=== PATIENT | female | born 1960 | race Caucasian/White ===

== ENCOUNTER 2020-09-18 14:51 | Outpatient (CLI) | payer OTHER, SELFPAY ==
--- NOTE | ~2020-09-18 | MM_ITS ---
EXAMINATION: MM screening [facility] BI w zack HISTORY: Screening mammogram TECHNIQUE: Craniocaudal and mediolateral oblique 3-D tomosynthesis images were obtained and synthetic 2-D images were generated. CAD analysis was submitted and interpreted. COMPARISON: 08/18/2019, 08/11/2018, 11/06/2016 BREAST PARENCHYMAL COMPOSITION: The breasts are almost entirely fatty. FINDINGS: There is no evidence of suspicious mass, calcification, or architectural distortion to sugg est malignancy in either breast. There has been no suspicious interval change. IMPRESSION: 1. No mammographic evidence of malignancy. 2. Recommend routine screening mammography in one year. BI-RADS Category 1: Negative Reviewed, dictated and finalized at location A. ARD/ST[employer]ARDESS [employer]INE
== END 2020-09-18 14:52 | disposition home or self-care (01) ==
LOC: ANHIMG 14:55
PROVIDERS: PCP Family Medicine; Visit Provider Family Medicine
DX: Z12.31 Encounter for screening mammogram for malignant neoplasm of breast (principal)
CPT/HCPCS: 77063; 77067

== ENCOUNTER 2022-01-25 16:51 | Outpatient (CLI) | payer OTHER, SELFPAY ==
--- NOTE | ~2022-01-25 | XR_ITS ---
EXAMINATION: XR ankle RT min 3V DATE: 01/25/2022 17:19 INDICATION: Right ankle pain and swelling. TECHNIQUE: 4 views of right ankle were obtained. COMPARISON: None. FINDINGS: Bone alignment is normal. No fracture. There is severe midfoot osteoarthritis. There is an enthesophyte at plantar aspect of calcaneal tuberosity. Ankle soft tissue swelling is noted. IMPRESSION: 1. Severe midfoot osteoarthritis. Reviewed, dictated and finalized at location A.
--- NOTE | ~2022-01-25 | XR_ITS ---
EXAMINATION: XR foot RT min 3V DATE: 01/25/2022 17:17 INDICATION: Right foot pain. TECHNIQUE: 5 views of right foot were obtained. COMPARISON: None. FINDINGS: Bone alignment is normal. No fracture. There is severe osteoarthritis of the naviculocuneif orm joints. There is mild osteoarthritis of many of the midfoot joints and interphalangeal joints. Th ere is moderate osteoarthritis of first metatarsophalangeal joint. There is mild osteoarthritis of fo urth and fifth metatarsophalangeal joints. There is an enthesophyte at plantar aspect of calcaneal tu berosity. IMPRESSION: 1. Polyarticular osteoarthritis. Reviewed, dictated and finalized at location A.
== END 2022-01-25 16:52 | disposition home or self-care (01) ==
LOC: ANHIMG 16:57
PROVIDERS: PCP Family Medicine; Visit Provider Family Medicine
DX: M79.89 Other specified soft tissue disorders (principal); M19.071 Primary osteoarthritis, right ankle and foot
CPT/HCPCS: 73610; 73630

== ENCOUNTER → 2022-04-11 13:32 | Outpatient (CLI) | payer OTHER, SELFPAY ==
--- NOTE | ~2022-04-11 | MR_ITS ---
EXAMINATION: MR foot RT wo con DATE: 04/11/2022 14:09 INDICATION: Decreased right ankle pain TECHNIQUE: Magnetic resonance imaging (MRI) of the right ankle was performed without intravenous cont rast. Sequences included sagittal, coronal, and axial proton-density weighted fast spin echo without and with fat saturation. COMPARISON: None. FINDINGS: Medial ankle ligaments: The superficial deltoid ligaments as well as the spring ligament are normal. Partial loss of the norm ally more sharply defined striated pattern of the deep deltoid ligament without surrounding edema con sistent with scarring related to chronic sprain. Lateral ankle ligaments: The anterior and posterior inferior tibiofibular ligaments are normal. There is thickening and increa sed signal of the anterior talofibular and calcaneofibular ligaments without surrounding edema consis tent with scarring related to chronic sprains. The posterior talofibular ligaments are normal. Tendons: Achilles tendon is normal. The peroneus longus and brevis tendons are normal. The tibialis anterior a nd extensor hallucis longus and extensor digitorum longus tendons are normal. The tibialis posterior, flexor digitorum longus and flexor hallucis longus tendons are normal. Plantar fascia: Moderate-sized plantar calcaneal spur and thickening of the proximal plantar aponeurosis consistent w ith chronic enthesopathy. No surrounding soft tissue or marrow edema to suggest acute plantar fasciit is. Bones/other: Bone alignment is normal. No fracture. Polyarticular osteoarthritis in the mid and hindfoot, severe w ith prominent marrow edema and degenerative subarticular cystic changes at the articulations between the navicula and mid and lateral cuneiforms. Additional moderate osteoarthritis at the medial navicul ocuneiform articulation, the calcaneocuboid, second and fourth tarsal metatarsal joints and mild at t he remaining tarsal metatarsal joints. Small bone island at the anterior aspect of the tibial plafond and. No pathologic marrow replacing process. Sinus Tarsi and tarsal tunnel are unremarkable. Fluid: Physiologic amount fluid in the joint spaces. No tenosynovitis, bursitis or other abnormal fluid mahnaz ections. Nonspecific mild soft tissue edema in the subcutaneous tissues into the ankle and over the d orsum of the mid and hindfoot. IMPRESSION: 1. Polyarticular osteoarthritis in the mid and hindfoot, severe at the articulations between the martin cula and the middle and lateral cuneiforms. 2. Scarring consistent with sequela of chronic medial and lateral ankle sprains involving the deep de ltoid, anterior talofibular and calcaneofibular ligaments. 2. Plantar calcaneal chronic enthesopathy with moderate-sized spur. Reviewed, dictated and finalized at location A. IMPRESSION: 1. Polyarticular osteoarthritis in the mid and hindfoot, severe at the articula tions between the navicula and the middle and lateral cuneiforms. 2. Scarring consistent with sequela of chronic medial and lateral ankle sprains involving the deep deltoid, anterior talofibular and calcaneofibular ligaments . 2. Plantar calcaneal chronic enthesopathy with moderate-sized spur.
== END ==
PROVIDERS: PCP Family Medicine; Visit Provider Orthopaedic Surgery
DX: M19.071 Primary osteoarthritis, right ankle and foot (principal); M77.31 Calcaneal spur, right foot
CPT/HCPCS: 73718

== ENCOUNTER → 2023-03-07 11:54 | Outpatient (CLI) | payer OTHER, SELFPAY ==
--- NOTE | ~2023-03-07 | XR_ITS ---
Lumbosacral Spine: AP and lateral views Clinical History: Pain Findings: The normal lordotic curve is maintained. No fracture or subluxation evident. There is advan vicky degenerative disc narrowing at L3-L4 and L4-L5. There is moderate degenerative disc narrowing at L2-L3. There is mild facet arthropathy at L4-L5 and L5-S1. The sacroiliac joints are normally outline d. Impression: Mild to moderate degenerative change, as above. Reviewed, dictated and finalized at location M. Impression: Mild to moderate degenerative change, as above.
== END ==
PROVIDERS: PCP Family Medicine; Visit Provider Physician Assistant
DX: M47.816 Spondylosis without myelopathy or radiculopathy, lumbar region (principal)
CPT/HCPCS: 72100

== ENCOUNTER 2023-03-14 15:09 | Outpatient (CLI) | payer OTHER, SELFPAY ==
--- NOTE | ~2023-03-14 | CT_ITS ---
CT of the Abdomen and Pelvis: Indication: Pain Technique: 2.5 mm axial scans were obtained through the abdomen and pelvis following intravenous adm inistration of 100 cc of Omnipaque 350. Dose reduction technique was used on this scan by utilizing a utomated exposure control and iterative reconstruction technique. The dose-length product (DLP) was 6 29.13 mGy-cm. COMPARISON: 08/08/2010 Findings: Scans through the lung bases demonstrate moderate hiatal hernia. The liver, pancreas, adrenals and kidneys are within normal limits. Tiny gallbladder stone or gallbla dder wall calcification present. Splenic cyst measures 3.7 cm in diameter. No evidence of aortic aneu rysm. No lymphadenopathy. No bowel obstruction or bowel wall thickening. There is no evidence to suggest acute appendicitis. Images through the pelvis were performed. Urinary bladder unremarkable. No adnexal mass evident. No a scites. Impression: Probable tiny gallstone versus focal gallbladder wall calcification. Stable splenic cyst. Reviewed, dictated and finalized at [facility]. Impression: Probable tiny gallstone versus focal gallbladder wall calcification. Stable splenic cyst.
[2023-03-14 15:31] LABS: Estimated Glomerular Filt Rate 56
== END 2023-03-14 15:10 | disposition home or self-care (01) ==
PROVIDERS: PCP Family Medicine; Visit Provider Physician Assistant
DX: M54.50 Low back pain, unspecified (principal); D73.4 Cyst of spleen
CPT/HCPCS: 74177; Q9967

== ENCOUNTER 2023-03-25 13:05 | Outpatient (CLI) | payer OTHER, SELFPAY ==
--- NOTE | ~2023-03-25 | XR_ITS ---
XR thoracic spine 3V DATE: 03/25/2023 13:33 INDICATION: Generalized back pain TECHNIQUE: AP, lateral, swimmer COMPARISON: None FINDINGS: There is approximately 2.5 mm anterolisthesis at C4-5 and prominent degenerative disc disea se at C5-6. Normal alignment of the thoracic spine, with minimal levoscoliosis. The thoracic pedicles are intact. There is minimal thoracic spine degenerative spurring. No fracture or bone destruction or paraspinal soft tissue thickening. The thoracic pedicles are intact. IMPRESSION: Mild levoscoliosis of the thoracic spine Minimal degenerative spurring of the thoracic spine. 2.5 mm anterolisthesis at C4-5 Multilevel degenerative disc disease of cervical spine including severe degenerative disc disease at C5-6 Reviewed, dictated and finalized at location A. IMPRESSION: Mild levoscoliosis of the thoracic spine Minimal degenerative spurring of the thoracic spine. 2.5 mm anterolisthesis at C4-5 Multilevel degenerative disc disease of cervical spine including severe degener ative disc disease at C5-6
--- NOTE | ~2023-03-25 | XR_ITS ---
EXAMINATION: XR lumbar spine 2-3V DATE: 03/25/2023 13:33 INDICATION: Dorsalgia, unspecified TECHNIQUE: Anteroposterior and lateral views of the lumbar spine, and cone-down lateral view of the l umbosacral junction were obtained. COMPARISON: 03/07/2023 FINDINGS: Bone alignment is normal. There is no fracture. There is severe loss of intervertebral disc space height at L3-4 and L4-5. The vertebral body heights are maintained. There is moderate loss of intervertebral disc space height at L2-3. There is mild to moderate facet joint osteoarthritis of the lower lumbar spine. IMPRESSION: 1. [id number] lumbar spondylosis without acute findings or significant interval change. Reviewed, dictated and finalized at location L. IMPRESSION: 1. [id number] lumbar spondylosis without acute findings or significant in terval change.
== END 2023-03-25 13:06 | disposition home or self-care (01) ==
PROVIDERS: PCP Family Medicine; Visit Provider Physician Assistant
DX: M47.896 Other spondylosis, lumbar region (principal); M50.322 Other cervical disc degeneration at C5-C6 level
CPT/HCPCS: 72072; 72100

== ENCOUNTER 2023-07-16 10:42 | Outpatient (CLI) | payer OTHER, SELFPAY ==
--- NOTE | ~2023-07-16 | MM_ITS ---
EXAMINATION: MM screening [facility] BI w zack HISTORY: Screening mammogram TECHNIQUE: Craniocaudal and mediolateral oblique 3-D tomosynthesis images were obtained and synthetic 2-D images were generated. CAD analysis was submitted and interpreted. COMPARISON: 09/18/2020, 08/18/2019, 08/11/2018 BREAST PARENCHYMAL COMPOSITION: There are scattered areas of fibroglandular density. FINDINGS: No suspicious mass, calcification, or architectural distortion are identified in either frank ast to suggest malignancy. There has been no suspicious interval change. IMPRESSION: 1. No mammographic evidence of malignancy. 2. Recommend routine screening mammography in one year. BI-RADS Category 1: Negative Reviewed, dictated and finalized at location A.
== END 2023-07-16 10:43 | disposition home or self-care (01) ==
LOC: CHSIMG 10:44
PROVIDERS: PCP Family Medicine; Visit Provider Obstetrics & Gynecology
DX: Z12.31 Encounter for screening mammogram for malignant neoplasm of breast (principal)
CPT/HCPCS: 77063; 77067

== ENCOUNTER 2023-09-22 09:32 | Outpatient (CLI) | payer OTHER, SELFPAY ==
[2023-09-22 13:20] LABS: Anion Gap 6 mmol/L (8-16); Blood Urea Nitrogen 17 mg/dL (7-17); Calcium 9.3 mg/dL (8.4-10.2); Carbon Dioxide 29 mmol/L (22-30); Chloride 106 mmol/L (98-107); Cholesterol 191 mg/dL (0-200); Estimated Glomerular Filt Rate 56; Glucose 94 mg/dL (65-110); HDL Direct 66 mg/dL; Potassium 4.5 mmol/L (3.4-5.0); Sodium 141 mmol/L (137-145); Triglycerides 96 mg/dL (<150)
[2023-09-22 13:21] LABS: Basophils Absolute Auto 0.1 K/mm3 (0.0-0.1); Basophils Percent Auto 1.4 % (0.2-1.2); Eosinophils Absolute Auto 0.2 K/mm3 (0-0.3); Eosinophils Percent Auto 4.1 % (0-4.4); Hematocrit 38.9 % (37.0-47.0); Immature Granulocyte Absolute 0.02 K/mm3 (0.00-0.031); Immature Granulocyte Percent A 0.3 % (0-0.5); Lymphocytes Absolute Auto 1.33 K/mm3 (0.9-3.2); Lymphocytes Percent Auto 22.9 % (18.3-44.2); Mean Corpuscular HGB Conc 30.8 g/dl (32-36); Mean Corpuscular Hemoglobin 25.8 pg (26-34); Mean Corpuscular Volume 83.7 fl (80-100); Mean Platelet Volume 10.3 fl (7.4-10.4); Monocytes Absolute Auto 0.5 K/mm3 (0.1-0.6); Neutrophils Absolute Auto 3.6 K/mm3 (1.3-6.7); Neutrophils Percent Auto 62.3 % (45.5-73.1); Platelet Count Result 279 k/mm3 (150-375); Red Blood Count 4.65 M/mm3 (4.2-5.4); Red Cell Distribution Width 13.7 % (11.5-14.5); White Blood Count 5.8 K/mm3 (4.5-10.0)
[2023-09-22 13:32] LABS: LDL Cholesterol Direct 91 mg/dL
== END 2023-09-22 09:33 | disposition home or self-care (01) ==
LOC: ANHGOSHLAB 09:34
PROVIDERS: PCP Family Medicine; Visit Provider Nurse Practitioner Family
DX: E78.2 Mixed hyperlipidemia (principal); R03.0 Elevated blood-pressure reading, without diagnosis of hypertension; E55.9 Vitamin D deficiency, unspecified
CPT/HCPCS: 36415; 80048; 80061; 82306; 84443; 85025

== ENCOUNTER 2023-11-12 01:49 | Day surgery (SDC) | payer OTHER, SELFPAY ==
[2023-10-21 15:19] VITALS: BMI 29.0
--- NOTE | 2023-11-10 10:47 | PC.NURSE ---
Patient called regarding upcoming procedure. Reviewed preop instructions, appointment times, and procedure prep.
--- NOTE | 2023-11-11 15:03 | PM.HPGS ---
History of Present Illness History of Present Illness Consent: Risks, benefits, and alternatives have been discussed and questions answered. Patient agrees to proceed with procedure. Chief complaint: neoplasm screening Narrative: Sarah Mae is a 63 year old female Referred for colon cancer screening. She had a colonoscopy 2008. [facility] Past Medical History Medical History Ankle pain, right Anxiety Arthritis of right ankle HTN (hypertension) Microscopic hematuria Mixed hyperlipidemia Moderate right ankle sprain Reaction to chronic stress Stress fracture of tibia Wears glasses Surgical History Surgical History History of endometrial ablation History of oophorectomy S/P dilation and curettage Family History Family History Father Family history of hypercholesterolemia Hypertension Family history of cardiovascular disease Cerebrovascular accident Grandparent Family history of hypercholesterolemia Hypertension Family history of cardiovascular disease Mother Family history of hypercholesterolemia Hypertension Family history of kidney disease Other Family history of heart disease in male family member before age 55 Heart disease Social History Social History Smoking status: Never smoker Alcohol intake: never Substance use: never Substance use type: does not use Lack of Transportation: No Lack of Food: Never True Current Housing: I Have Housing Concerned About Future Housing: No Difficulty Paying Gas/Electric Bills: No Difficulty Paying for Meds: No Currently Unemployed: No Education: Associate Degree Difficulty w/ Childcare or Family Care: No Living arrangements: with family Occupation/Education: retired Gender identity (if verbalized by the patient): Female Spiritual care concerns: No Meds Home Medications and Allergies Home Medications Medication Instructions Recorded Confirmed Type cetirizine 10 mg tablet (Zyrtec) 10 mg PO DAILY PRN Allergy Symptoms 05/27/22 11/12/23 History atorvastatin 10 mg tablet 10 mg PO DAILY #90 tabs 09/22/23 11/12/23 Rx bupropion HCl 150 mg 24 hr tablet, 150 mg PO QAM #90 tabs 09/22/23 11/12/23 Rx extended release bupropion HCl 300 mg 24 hr tablet, 300 mg PO QAM #90 tabs 09/22/23 11/12/23 Rx extended release metoprolol succinate 25 mg 25 mg PO DAILY #90 tabs 09/22/23 11/12/23 Rx tablet,extended release 24 hr omeprazole 20 mg capsule,delayed 20 mg PO DAILY #60 caps 09/23/23 11/12/23 Rx release Allergies Allergy/AdvReac Type Severity Reaction Status Date / Time No Known Allergies Allergy Unknown Verified 11/12/23 09:20 Assessment and Plan Assessment and plan (1) Colon cancer screening: Code(s): Z12.11 - Encounter for screening for malignant neoplasm of colon Status: Acute Assessment and Plan: Colonoscopy with possible biopsy or polypectomy or cautery or injection of substances.
[2023-11-12 09:22] VITALS: BP 141/86; PULSE 83; RESP 16; TEMP 36.1; O2SAT 97
[2023-11-12] MEDS: LACTATED RINGERS 1,000 ML 150 ML IV CONT (09:32)
--- NOTE | 2023-11-12 09:42 | WPDANESEPPF ---
Anes - Initial Pre Proc Eval Procedure: Operation Date: 11/12/23 10:30 Proposed Procedures p Screening Colonoscopy - Fitz Dumont MD Date/Time: 11/12/23 09:42 Surgeon: Fitz Dumont MD Pre Op Diagnosis: neoplasm screening Patient Data Age: 63 Gender: F Height: 1.68 m Weight: 79.3 kg Last Vital Signs Temp 36.1 C L 11/12/23 09:22 Pulse 83 11/12/23 09:22 Resp 16 11/12/23 09:22 BP 141/86 H 11/12/23 09:22 Pulse Ox 97 11/12/23 09:22 O2 Del Method Room Air 11/12/23 09:22 Allergies Allergy/AdvReac Type Severity Reaction Status Date / Time No Known Allergies Allergy Unknown Verified 11/12/23 09:20 Home Medications Medication Instructions Recorded Confirmed Type cetirizine 10 mg tablet (Zyrtec) 10 mg PO DAILY PRN Allergy Symptoms 05/27/22 11/12/23 History atorvastatin 10 mg tablet 10 mg PO DAILY #90 tabs 09/22/23 11/12/23 Rx bupropion HCl 150 mg 24 hr tablet, 150 mg PO QAM #90 tabs 09/22/23 11/12/23 Rx extended release bupropion HCl 300 mg 24 hr tablet, 300 mg PO QAM #90 tabs 09/22/23 11/12/23 Rx extended release metoprolol succinate 25 mg 25 mg PO DAILY #90 tabs 09/22/23 11/12/23 Rx tablet,extended release 24 hr omeprazole 20 mg capsule,delayed 20 mg PO DAILY #60 caps 09/23/23 11/12/23 Rx release Patient hx anesthesia problems: none Family hx anesthesia problems: none Results Review: All pre-operative results and documents have been reviewed as part of the pre-operative evaluation. [facility] Past Medical History Medical History Ankle pain, right Anxiety Arthritis of right ankle HTN (hypertension) Microscopic hematuria Mixed hyperlipidemia Moderate right ankle sprain Reaction to chronic stress Stress fracture of tibia Wears glasses Surgical History Surgical History History of endometrial ablation History of oophorectomy S/P dilation and curettage Family History Family History Father Family history of hypercholesterolemia Hypertension Family history of cardiovascular disease Cerebrovascular accident Grandparent Family history of hypercholesterolemia Hypertension Family history of cardiovascular disease Mother Family history of hypercholesterolemia Hypertension Family history of kidney disease Other Family history of heart disease in male family member before age 55 Heart disease Social History Social History Smoking status: Never smoker Alcohol intake: never Substance use: never Substance use type: does not use Lack of Transportation: No Lack of Food: Never True Current Housing: I Have Housing Concerned About Future Housing: No Difficulty Paying Gas/Electric Bills: No Difficulty Paying for Meds: No Currently Unemployed: No Education: Associate Degree Difficulty w/ Childcare or Family Care: No Living arrangements: with family Occupation/Education: retired Gender identity (if verbalized by the patient): Female Spiritual care concerns: No Anes - Eval Final PreProcedure Day of Procedure 11/12/23 09:42 Patient weight: overweight Heart: regular rate and rhythm Lungs: clear to auscultation Airway: Mallampati scale class II Neurological: alert and oriented Last oral intake: >/= 8 hours ASA classification: II Emergent: no Anesthetic plan: proceed Anesthesia type and monitoring: general GIVS and standard monitoring Results Review: All pre-operative results and documents have been reviewed as part of the pre-operative evaluation. Informed Consent: The patient's anesthetic plan and its attendant risks and benefits were discussed with the patient/family/POA. Questions were solicited and answers provided to the satisfaction of the patient/family/POA.
[2023-11-12 10:35] VITALS: BP 110/63; PULSE 63; RESP 19; O2SAT 97
[2023-11-12 10:45] VITALS: BP 126/68; PULSE 64; RESP 19; O2SAT 100
[2023-11-12 10:55] VITALS: BP 144/79; PULSE 62; RESP 19; O2SAT 100
== END 2023-11-12 11:03 | disposition home or self-care (01) ==
PROVIDERS: PCP Family Medicine; Visit Provider Internal Medicine Gastroenterology
PROC: 0DJD8ZZ Inspection of Lower Intestinal Tract, Via Natural or Artificial Opening Endoscopic (ICD-10-PCS; CPT 45378; principal; 2023-11-12 10:30)
DX: Z12.11 Encounter for screening for malignant neoplasm of colon (principal); D12.3 Benign neoplasm of transverse colon; K64.8 Other hemorrhoids; I10 Essential (primary) hypertension; E78.2 Mixed hyperlipidemia; F41.9 Anxiety disorder, unspecified
CPT/HCPCS: 45380; 88305; J2704; J7120

== ENCOUNTER 2024-09-22 11:58 | Outpatient (CLI) | payer OTHER, SELFPAY ==
--- NOTE | ~2024-09-22 | MM_ITS ---
EXAMINATION: MM screening [facility] BI w zack HISTORY: Screening TECHNIQUE: Craniocaudal and mediolateral oblique 3-D tomosynthesis images were obtained and synthetic 2-D images were generated. CAD analysis was submitted and interpreted. COMPARISON: Comparison to multiple prior studies sequentially, with oldest reviewed study dated 03/2015. BREAST PARENCHYMAL COMPOSITION: Not dense: There are scattered areas of fibroglandular density. FINDINGS: There is no evidence of suspicious mass, calcification, or architectural distortion to sugg est malignancy in either breast. There has been no suspicious interval change. IMPRESSION: 1. No mammographic evidence of malignancy. 2. Recommend routine screening mammography in one year. BI-RADS Category 1: Negative Reviewed, dictated and finalized at location B. EL INSPECTOR
== END 2024-09-22 11:59 | disposition home or self-care (01) ==
PROVIDERS: PCP Family Medicine; Visit Provider Family Medicine
DX: Z12.31 Encounter for screening mammogram for malignant neoplasm of breast (principal)
CPT/HCPCS: 77063; 77067

== ENCOUNTER 2024-10-26 09:14 | Outpatient (CLI) | payer OTHER, SELFPAY ==
--- OUTSIDE RECORDS SUMMARY | 2024-10-26 09:56 | XMS_ITS | Continuity of Care Document ---
Author Organization [facility] Address [id number] [place] [address] [address] [place] [address] Phone Care Team Providers Care Economist Research Assistant Name Role Phone Badillo OD, Jarett Unavailable Unavailable Advance Directives Directive Yes / No Effective Date File Name No Information Encounters Encounter Description Practice Location Reason(s) For Visit Diagnoses Date Provider Providers Copied on Encounter [facility], [address], [place], [place], [id number], [place] tel:[phone] [facility] No Information Oct- 2-200 5 Badillo OD Jarett. [address] , [address], [place], [address], [place]. tel:[phone] Family History Family Member Type Diagnosis Age At Onset No Information Payers Payer name Insurance type Covered green party ID Authoriza tion(s) No Information Social History Type Description Quantity Date Captured Comments Sex Female Smoking Status No Information Chief Complaint And Reason For Visit No Information Reason For Referral Reason For Referral No Information History Of Present Illness Encounter Date Complaint History Of Prese nt Illness No Information Functional Status Date Functional Assessmen t No Information Instructions Date Instruction Additional Infor mation No Information Assessments Type Assessment Date No Information Patient Care Teams Name Effective Dates (start - stop) Status Members No Information
--- OUTSIDE RECORDS SUMMARY | 2024-10-26 09:56 | XMS_ITS | Clinical Summary ---
Author Organization [facility] [employer] Address [address] [place] [address] Care Team Providers Care Driver Name Role Phone Ramiro Vargas MD Primary Care Provider [phone] Source Comments [facility] [employer],non-owned Affiliates and Associated Physician Practices is amultiple site organization consisting of ambulatory clinics and hospital sitesin [place], [place], [place] and [place]. This disclosure is being madepursuant to the Care Everywhere program and may not contain all information available regarding this patient. Last updated 18.[facility] [employer] Allergies No known active allergies Medications * Be aware that medications may not be up to date on this document. Alwaysverify current medications with the patient. Medication Sig Dispensed Refills Start Date End Date Status buPROPion XL 24hr (Wellbutrin-XL) 150 MG tablet TAKE 1 TABLET BY MOUTH IN THE MORNING 12/01/2021 Active vilazodone (Viibryd) 10 MG tablet TAKE 1 TABLET BY MOUTH ONCE DAILY FOR 7 DAYS THEN TAKE 20 MG THEREAFTER 06/08/2022 Active metoprolol succinate-hydroCHLORO thiazide 24 hr (Dutoprol) 25-12.5 MG tablet Take 1 (one) tablet by mouth once daily Active SITagliptin 100 MG TABS 100 mg, atorvastatin 10 MG TABS 10 mg Take by mouth daily with breakfast Active atorvastatin (Lipitor) 10 MG tablet Active Active Problems Problem Noted Date Diagnosed Date Neoplasm of uncertain behavior of skin Multiple benign melanocytic nevi of upper and lower extremities and trunk 06/17/2022 Solar lentiginosis 06/17/2022 Seborrheic keratosis 06/17/2022 Gonzalez angioma 06/17/2022 Inflamed seborrheic keratosis 06/17/2022 Family History Medical History Relation Name Comments Cancer - Skin, Non Melanoma Brother Cancer - Skin, Non Melanoma Father None Known Maternal Aunt None Known Maternal Grandfather None Known Maternal Grandmother None Known Maternal Uncle None Known Mother None Known Other None Known Paternal Aunt None Known Paternal Grandfather None Known Paternal Grandmother None Known Paternal Uncle Cancer - Skin, Non Melanoma Sister Asthma Neg Hx CVA Neg Hx Cancer - Breast Neg Hx Cancer - Other Neg Hx Cancer - Skin, Melanoma Neg Hx Eczema Neg Hx Hemophilia Neg Hx Psoriasis Neg Hx Relation Name Status Comments Brother Father Maternal Aunt Maternal Grandfather Maternal Grandmother Maternal Uncle Mother Other Paternal Aunt Paternal Grandfather Paternal Grandmother Paternal Uncle Sister Social History Tobacco Use Types Packs/Day Years Used Date Smoking Tobacco: Never Smokeless Tobacco: Never Tobacco Cessation:Counseling Given: No Alcohol Use Standard Drinks/Week Comments Yes 2 (1 standard drink = 0.6 oz pur e alcohol) Sex and Gender Information Value Date Recorded Sex Assigned at Female 06/17/2022 12:20 PM CDT Gender Identity Female 06/17/2022 12:20 PM CDT Sexual Orientation Straight 06/17/2022 12 :20 PM CDT Plan of Treatment Upcoming Encounters Date Type Department Care Team (Late st Contact Info) Description 07/04/2025 8:50 AM CDT Office Visit [facility] - Dermatology [address] [place] [address], [place] [address] Bam Riley MD [address] [place] [address] [address] [place] [address] Health Maintenance Due Date Last Done Comments COLOGUARD (AGES 45-75) - COL ON CA SCREENING 1960 COLON MONITORING 1960 COLONOSCOPY - COLON CA SCREENING 1960 CT COLONOGRAPHY - COLON CA SCREENING 1960 Colorectal Cancer Screening 1960 FIT - COLON CA SCREENING 1960 FLEX SIG - COLON CA SCREENING 1960 MAMMOGRAM 1960 PAP SMEAR 1960 HIV SCREENING 1975 HEPATITIS C SCREENING 03/16/1978 DTAP/TDAP/TD VACCINES (1 - Tdap) 1979 PNEUMOCOCCAL VACCINE 50+ (1 of 1 - PCV) 2010 ZOSTER VACCINE (1 of 2) 2010 COVID-19 VACCINE (1 - 2023-2 5 season) 2024 INFLUENZA VACCINE (#1) 2024 DEPRESSION SCREENING 09/15/2024 Respiratory Syncytial Virus (RSV) Vaccine Pt: or over 60 yrs (1 - 1-dose 75+ series) 2035 HEPATITIS B VACCINE Aged Out No longe r eligible based on patient's age to complete this topic HIB VACCINE Aged Out No longer eligi ble based on patient's age to complete this topic HPV VACCINE Aged Out No longer eligi ble based on patient's age to complete this topic MENINGOCOCCAL (Group B) VACCINE Aged Out No longer eligible based on patient's age to complete this topic MENINGOCOCCAL VACCINE Aged Out No andrew carlos eligible based on patient's age to complete this topic PNEUMOCOCCAL VACCINE Aged Out No long er eligible based on patient's age to complete this topic Care Teams Driver Relationship Specialty Start Date End Date Ramiro Vargas MD [address] [place] [id number] PCP - General 03/28/22
--- OUTSIDE RECORDS SUMMARY | 2024-10-26 09:56 | XMS_ITS | Referral Summary ---
Author Organization [facility] [employer] Address [address] [place] [address] Care Team Providers Care Sheet Rock Installer Name Role Phone Ramiro Vargas MD Primary Care Provider [phone]- [phone] Source Comments [facility] [employer]non-owned Affiliates and Associated Physician Practices is amultiple site organization consisting of ambulatory clinics and hospital sitesin [place], [place], [place] and [place]. This disclosure is being madepursuant to the Care Everywhere program and may not contain all information available regarding this patient. Last updated 18.[facility] [employer] Allergies No known active allergies Medications * [...] Gonzalez angioma 06/17/2022 Inflamed seborrheic keratosis 06/17/2022 Social History Tobacco Use Types Packs/Day Years [...] Office Visit [facility] - Dermatology [address] [place] [address], [facility] [place] [id number] Bam Riley MD [address] [place] [address] [address] [place] [address] Care Teams Sheet Rock Installer Relationship Specialty Start Date End Date Ramiro Vargas MD [address] [place] [id number] PCP - General 03/28/22
--- OUTSIDE RECORDS SUMMARY | 2024-10-26 09:56 | XMS_ITS | Clinical Summary ---
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 Gender Identity Not on file Sexual Orientation Not on file Plan of Treatment Health Maintenance Due Date Last Done Comments Hepatitis C Virus (HCV) Screening 1960 TdaP Immunization 1960 Pap Smear 1981 Cervical Cancer Screening (CCS) 1990 HPV/Cotest 1990 Colonoscopy 2005 Colorectal Cancer Screening 2005 Cologuard 2010 Immunochemical Fecal Occult Blood 2010 Mammogram 2010 Pneumococcal Immunization (5 0+ years) (1 of 1 - PCV) 2010 Zoster Immunization (1 of 2) 2010 Influenza Immunization (#1) 2024 11/03/2018 SARS-COV-2 Immunization ( - 2023-25 season) 2024 Respiratory Syncytial Virus (RSV) Immunization (Adult) (1 - 1-dose 75+ series) 2035 Hepatitis B Immunization Aged Out No longer eligible based on patient's age to complete this topic Meningococcal Immunization (ACWY) Aged Out No longer eligible based on patient's age to complete this topic Rotavirus Immunization Aged Out No lo nger eligible based on patient's age to complete this topic
--- OUTSIDE RECORDS SUMMARY | 2024-10-26 09:56 | XMS_ITS | Patient Health Summary ---
Author Organization [facility] Address [address] [facility] [place] [address] Care Team Providers Care Supervisor Type Photography Name Role Phone Ramiro Vargas MD Primary Care Provider [phone]- [phone] Note from [facility],non-owned Affiliates and Associated Physician Practices is amultiple site organization consisting of ambulatory clinics and hospital sitesin [place], [place], [place] and [place]. This disclosure is being madepursuant to the Care Everywhere program and may not contain all information available regarding this patient. Last updated 18.[facility] Allergies No known active allergies Medications * Be aware that medications may not be up to date on this document. Alwaysverify current medications with the patient. * buPROPion XL 24hr (Wellbutrin-XL) 150 MG tablet(Started 12/01/2021) TAKE 1 TABLET BY MOUTH IN THE MORNING * vilazodone (Viibryd) 10 MG tablet(Started 06/08/2022) TAKE 1 TABLET BY MOUTH ONCE DAILY FOR 7 DAYS THEN TAKE 20 MG THEREAFTER * metoprolol succinate-hydroCHLOROthiazide 24 hr (Dutoprol) 25-12.5 MG tablet Take 1 (one) tablet by mouth once daily * SITagliptin 100 MG TABS 100 mg, atorvastatin 10 MG TABS 10 mg Take by mouth daily with breakfast * atorvastatin (Lipitor) 10 MG tablet Active Problems Problem Noted Date Diagnosed Date Neoplasm of uncertain behavior of skin 2 Multiple benign melanocytic nevi of upper and [...] Orientation Straight 06/17/2022 12 :20 PM CDT Procedures * MA DESTROY PREMALIG LESION, 1ST LESION(Performed 06/28/2024) Performed for Actinic keratosis * MA DESTROY PREMALIG LESION, 1ST LESION(Performed 06/23/2023) Performed for Actinic keratosis * MA DESTRUCT BENIGN LESION, 1-14(Performed 06/17/2022) Performed for Inflamed seborrheic keratosis * MA TANGNTL BX SKIN SINGLE LES(Performed 06/17/2022) Performed for Neoplasm of uncertain behavior of skin * DERMATOPATHOLOGY(Performed 06/17/2022) Performed for Neoplasm of uncertain behavior of skin Results * MA DESTROY PREMALIG LESION, 1ST LESION (06/28/2024 10:25 AM CDT) Narrative Bam Riley MD - 06/28/2024 10:25 AM CDT Rose Polanco MD 06/28/2024 10:25 AM Diagnosis and treatment options discussed. Cryotherapy (Liquid Nitrogen) to 1 lesion(s) for 5-7 seconds each. Number of cycles: 1. Wound care reviewed. Location: left bahai Rose Polanco MD [facility] Dermatology Resident Bam Riley MD PROCEDURE/MINOR SURG ICAL ORDERABLES * MA DESTROY PREMALIG LESION, 1ST LESION (06/23/2023 10:14 AM CDT) Narrative Bam Riley MD - 06/23/2023 10:14 AM CDT Marty Resendez MD 06/23/2023 10:15 AM Diagnosis and treatment options discussed. Cryotherapy (Liquid Nitrogen) to 1 AK(s) (location: Left eyebrow ) x 6-7 seconds each. Number of cycles: 1. Wound care reviewed. Bam Riley MD PROCEDURE/MINOR SURG ICAL ORDERABLES * MA DESTRUCT BENIGN LESION, 1-14 (06/17/2022 10:54 AM CDT) Narrative Bam Riley MD - 06/17/2022 10:54 AM CDT Lakisha Vargas MD 06/17/2022 10:55 AM Diagnosis and treatment options discussed, addressing the benefit and risks of each. Pt wish to proceed with cryotherapy. Using forceps, liquid nitrogen was applied to ISK on L lower eyelid for 7-10s each. Number of cycles: 2. Wound care reviewed. Lakisha Vargas MD,[facility] Dermatology Resident, PGY-4 Bam Riley MD PROCEDURE/MINOR SURG ICAL ORDERABLES * MA TANGNTL BX SKIN SINGLE LES (06/17/2022 10:45 AM CDT) Narrative Bam Riley MD - 06/17/2022 10:45 AM CDT Lakisha Vargas MD 06/17/2022 10:46 AM Risks, benefits and alternatives to shave biopsy were discussed with the patient. Pt understands the possibility for the following: Bleeding, infection, scar (100% chance), the possibility of non-diagnostic reading and the potential need for further testing or treatment, including surgical. Stated clearly the size of the specimen and the need to obtain adequate tissue for the most accurate path reading. Pt accepts all of above, verbal consent was obtained. Location: L shoulder Skin prep: Alcohol Anesthesia: 1% lidocaine with epinephrine Hemostasis: Aluminum chloride Dressing and wound care discussed Lakisha Vargas MD,[facility] Dermatology Resident, PGY-4 Bam Riley MD PROCEDURE/MINOR SURG ICAL ORDERABLES * DERMATOPATHOLOGY (06/17/2022 3:33 AM CDT) Case Report Dermatopathology Report Case: [id number] Authorizing Provider: Bam Riley MD Collected: 06/17/2022 03:33 AM Ordering Location: [facility] Received: 06/17/2022 02:38 PM Dermatology Pathologist: Yeni Noel MD Specimen: Skin, left shoulder 11:19 AM CDT DERMATOPATHOLOGY LABORATORY Final Diagnosis Specimen A. SKIN, left shoulder: HYPERPLASTIC (HYPERTROPHIC) ACTINIC KERATOSIS (L57.0) 2 11:19 AM CDT DERMATOPATHOLOGY LABORATORY Clinical History ISK vs. HAK vs. SCCIS 2 11:19 AM CDT DERMATOPATHOLOGY LABORATORY Gross Description Specimen A: Received is one formalin filled container labeled with the patient's name and designated left shoulder. The specimen consists of a shave biopsy measuring [id number]. Jar 0. 2 11:19 AM CDT DERMATOPATHOLOGY LABORATORY Microscopic Description Specimen A. SKIN, left shoulder: There is hyperkeratosis alternating with parakeratosis. There is epidermal hyperplasia with disorderly maturation of keratinocytes with nuclear pleomorphism confined to the lower half of the epidermis. 2 11:19 AM CDT DERMATOPATHOLOGY LABORATORY Disclaimer An external and internal positive and negative controls are appropriate for the histochemical, immunohistochemical and immunofluorescence stain(s) in this case (if any), except where stated explicitly. The performance characteristics of the stain(s) cited in this report were developed and its performance characteristic determined by the Dermatopathology Laboratory at [facility], directed by Dr. Colby Noel. These tests need not be, and therefore are not, approved by the [place] Food and Drug Administration. The tests are used for clinical purposes. Billing Codes Specimen Charges Stain Charges 90669 1 2 11:19 AM CDT DERMATOPATHOLOGY LABORATORY Embedded Images 2 11:19 AM CDT DERMATOPATHOLOGY LABORATORY Pathology/Cytolo gy TISSUE SPECIMEN FROM SKIN / Unknown 06/17/2022 3:33 AM CDT 06/17/2022 2:38 PM CDT Bam Riley MD LAB - PATHOLOGY/CYTO LOGY ORDERABLES DERMATOPATHOLOGY LABORATORY [facility] - Department of Dermatology [facility] [address] [place] [address], [address] [phone] Care Teams Supervisor Type Photography Relationship Specialty Start Date End Date Ramiro Vargas MD [address] [place] [phone] [facility] - General 03/28/22
--- OUTSIDE RECORDS SUMMARY | 2024-10-26 09:56 | XMS_ITS | Clinical Summary ---
Author Organization [facility] Address [address] [place] [id number] Care Team Providers Care Inspector Returned Materials Name Role Phone Unavailable Primary Care Provider Unavailabl e Social History Tobacco Use Types Packs/Day Years Used Date Smoking Tobacco: Never Assessed Comments Unknown Sex and Gender Information Value Date Recorded Sex Assigned at Not on file Legal Sex Female 7:44 PM CDT Gender Identity Not on file Sexual Orientation Not on file Plan of Treatment Health Maintenance Due Date Last Done Comments Cervical Cancer Screening Pa p Smear (Age 30 to 64) Every 3 Years 1960 Colorectal Cancer Screening Colonoscopy (10 Years) 1960 Annual Physical 1963 Hepatitis C 1978 DTaP, Tdap and Td Vaccines ( 1 - Tdap) 1979 Cervical Cancer Screening Pa p with HPV Testing (Age 30 to 64) Every 5 Years 1990 Cervical Cancer Screening with HPV 1990 Mammogram Screening 2000 Zoster Vaccines (1 of 2) 2010 COVID-19 Vaccine (2023-2 5 season) 2024 Influenza Adult (#1) 2024 RSV Immunization or 60+ Years (1 - 1-dose 75+ series) 2035 Meningococcal B Vaccine Aged Out No l onger eligible based on patient's age to complete this topic Meningococcal Vaccine Aged Out No andrew carlos eligible based on patient's age to complete this topic Pneumococcal Vaccine: Pediat rics (0 to 5 Years) and At-Risk Patients (6 to 64 Years) Aged Out No longer eligible b ased on patient's age to complete this topic RSV Immunizations Under 20 Months Aged Out No longer eligible based on patient's age to complete this topic
[2024-10-26 19:36] LABS: Basophils Absolute Auto 0.1 K/mm3 (0.0-0.1); Basophils Percent Auto 0.9 % (0.2-1.2); Eosinophils Absolute Auto 0.2 K/mm3 (0-0.3); Eosinophils Percent Auto 3.6 % (0-4.4); Hematocrit 38.1 % (37.0-47.0); Hemoglobin 11.8 g/dL (12.0-15.0); Immature Granulocyte Absolute 0.02 K/mm3 (0.00-0.031); Immature Granulocyte Percent A 0.3 % (0-0.5); Lymphocytes Absolute Auto 1.47 K/mm3 (0.9-3.2); Lymphocytes Percent Auto 23.2 % (18.3-44.2); Mean Corpuscular Hemoglobin 26.1 pg (26-34); Mean Corpuscular Volume 84.3 fl (80-100); Mean Platelet Volume 10.6 fl (7.4-10.4); Monocytes Absolute Auto 0.5 K/mm3 (0.1-0.6); Monocytes Percent Auto 7.7 % (2.6-8.5); Neutrophils Absolute Auto 4.1 K/mm3 (1.3-6.7); Neutrophils Percent Auto 64.3 % (45.5-73.1); Platelet Count Result 254 k/mm3 (150-375); Red Blood Count 4.52 M/mm3 (4.2-5.4); Red Cell Distribution Width 13.8 % (11.5-14.5); White Blood Count 6.3 K/mm3 (4.5-10.0)
[2024-10-26 20:28] LABS: Alanine Aminotransferase 17 U/L (6-35); Alkaline Phosphatase 92 U/L (38-126); Anion Gap 10 mmol/L (4-12); Aspartate Amino Transferase 22 U/L (14-36); Bilirubin,Total 0.5 mg/dL (0.2-1.3); Blood Urea Nitrogen 24 mg/dL (7-17); Calcium 9.2 mg/dL (8.4-10.2); Carbon Dioxide 27 mmol/L (22-30); Chloride 106 mmol/L (98-107); Cholesterol 203 mg/dL (0-200); Estimated Glomerular Filt Rate > 60; Glucose 78 mg/dL (65-110); HDL Direct 52 mg/dL; Potassium 4.4 mmol/L (3.4-5.0); Sodium 143 mmol/L (137-145); Triglycerides 171 mg/dL (<150)
[2024-10-26 20:39] LABS: LDL Cholesterol Direct 112 mg/dL
== END 2024-10-26 09:15 | disposition home or self-care (01) ==
LOC: ANHGOSHLAB 09:16
PROVIDERS: PCP Family Medicine; Visit Provider Nurse Practitioner Family
DX: E78.2 Mixed hyperlipidemia (principal); I10 Essential (primary) hypertension; K21.9 Gastro-esophageal reflux disease without esophagitis
CPT/HCPCS: 36415; 80053; 80061; 84443; 85025